=== PATIENT | female | born 1970 | race Caucasian/White ===

== ENCOUNTER → 2017-05-25 | Day surgery (SDC) | payer OTHER ==
[~2017-05-25] MED LIST: IV RINGERS,LACTATED 1000ML 1,000 ML IV SCH; LIDOCAINE 2% PF Vial for OR 5 ML VIAL. ONE; PANT40TA3 PO; PROPOFOL 20 ML IV ONE; SUCR1TAB35 PO; TOPI25CA6 PO
[2017-05-25 07:58] VITALS: BP 120/72
--- NOTE | 2017-05-27 00:02 | PATHOLOGY ---
PATHOLOGY REPORT * * * * * * * * FINAL DIAGNOSIS: Esophageal biopsies, distal esophagus: - Segments of hyperplastic squamous esophageal mucosa, consistent with reflux esophagitis. (JPM:etienne; 05/26/2017) COMMENT: Sections of the distal esophageal biopsy reveal segments of tangentially oriented, hyperplastic squamous esophageal mucosa. The findings are consistent with reflux esophagitis. There is no evidence of Vásquez's change, dysplasia, or malignancy. (JPM:etienne; 05/26/2017) REPORT ELECTRONICALLY SIGNED BY: Silvio Hernandez M.D. DATE/TIME: 05/26/2017 15:44 * * * * * * * * GROSS PATHOLOGY: Received in formalin labeled "Fay Rowe, distal esophageal BX r/o esophagitis," are 4 segments of manuel soft tissue measuring 0.9 x 0.7 x 0.2 cm in aggregate dimensions and ranging from 0.3 to 0.4 cm in maximum dimension. The specimen is submitted entirely in cassette A1. (TSD; 05/25/2017) INITIAL CPT CODE(S): A; 98529 Professional services performed [place] [address] Technical services performed by [facility] at [address] [place] [address]. SPECIMEN(S) RECEIVED: A.Distal esophageal biopsy, r/o esophagitis CLINICAL HISTORY: Abdominal pain, GERD PATIENT: FAY ROWE /AGE: 9 1970 (Age: 47) PATIENT #: [id number] ALT CASE #: SPECIMEN COLLECTION DATE: 05/25/2017 SPECIMEN RECEIVED DATE: 05/25/2017 [facility] - [address] [place] [address] - PHONE: [phone] * * * END OF REPORT * * *
== END | disposition home or self-care (01) ==
LOC: SURG 06:22
PROVIDERS: ATTEND Internal Medicine Gastroenterology
DX: K21.0 Gastro-esophageal reflux disease with esophagitis (principal); K29.50 Unspecified chronic gastritis without bleeding; Z86.39 Personal history of other endocrine, nutritional and metabolic disease; Z90.49 Acquired absence of other specified parts of digestive tract; K21.9 Gastro-esophageal reflux disease without esophagitis; Z72.89 Other problems related to lifestyle; Z88.0 Allergy status to penicillin; Z88.8 Allergy status to other drugs, medicaments and biological substances
CPT/HCPCS: 43239; 88305; J2704; J2001

== ENCOUNTER 2018-11-24 22:25 | Inpatient (IN) | payer OTHER ==
[~2018-11-24] VITALS: Ht 177.8 cm; Wt 51.3 kg
[~2018-11-24 22:25] MED LIST changes: -IV RINGERS,LACTATED 1000ML 1,000 ML IV SCH; -LIDOCAINE 2% PF Vial for OR 5 ML VIAL. ONE; -PROPOFOL 20 ML IV ONE
[2018-11-24 23:06] LABS: BASO % 0 % (0-3); EOS # 0.2 x10^3/uL (0.0-0.7); EOS % 2 % (0-3); LYMPH # 2.7 x10^3/uL (1.0-4.8); LYMPH % 27 % (24-48); MEAN CORPUSCULAR HEMOGLOBIN 30 pg (25-35); MEAN CORPUSCULAR HGB CONC 33 g/dL (31-37); MEAN CORPUSCULAR VOLUME 91 fL (79-100); MONO # 0.6 x10^3/uL (0.0-1.1); MONO % 6 % (0-9); NEUT # 6.4 x10^3uL (1.8-7.7); NEUT % 65 % (31-73); PLATELET COUNT 260 x10^3/uL (140-400); RED BLOOD COUNT 4.29 x10^6/uL (3.50-5.40); RED CELL DISTRIBUTION WIDTH 12.7 % (11.5-14.5); WHITE BLOOD COUNT 9.8 x10^3/uL (4.0-11.0)
[2018-11-24 23:22] LABS: CALCIUM 9.3 mg/dL (8.5-10.1); CREATININE 0.8 mg/dL (0.6-1.0); GFR 76.9; POTASSIUM 3.8 mmol/L (3.5-5.1)
[2018-11-24 23:28] LABS: ALBUMIN/GLOBULIN RATIO 1.1 (1.0-1.7); MAGNESIUM 1.8 mg/dL (1.8-2.4); TOTAL BILIRUBIN 0.3 mg/dL (0.2-1.0); TOTAL PROTEIN 7.5 g/dL (6.4-8.2)
--- NOTE | 2018-11-24 23:51 | PHYS DOC ---
Past Medical History Past Medical History: GERD Past Surgical History: Appendectomy, Cholecystectomy Additional Past Surgical Histo: L SHOULDER,L KNEE Alcohol Use: Occasionally Drug Use: None Adult General Chief Complaint Chief Complaint: CHEST PAIN-CARDIAC NATURE HPI HPI Patient is a 48 year old female who was in by EMS because of chest pain. Patient states she has sudden onset of substernal sharp chest pain an hour after eating dinner as a severe pain and rated her pain 10 over 10. Patient states the pain radiated to his back and associated with shortness of breath, dizziness and diaphoresis. Patient stated she didn't have nausea but had 1 episode of vomiting without change of pain. Patient had aspirin and 2 nitroglycerin by EMS with improvement of her pain. Patient states she had the same pain 4 months ago and seen by GI specialist and was told that she had small pancreatic and bile ducts that could have a small stone and observation was advised. She doesn't have any cardiac factors except for family history of coronary artery disease. Patient denies history of PE and DVT or recent immobilization. Patient complaining of soreness in her chest without chest pain at arrival to ER. Review of Systems Review of Systems Constitutional: Denies fever or chills [] Eyes: Denies change in visual acuity, redness, or eye pain [] HENT: Denies nasal congestion or sore throat [] Respiratory: Denies cough, reports shortness of breath [] Cardiovascular: No additional information not addressed in HPI [] GI: Denies abdominal pain, nausea, bloody stools or diarrhea, reports vomiting [] : Denies dysuria or hematuria [] Musculoskeletal: Denies back pain or joint pain [] Integument: Denies rash or skin lesions [] Neurologic: Denies headache, focal weakness or sensory changes [] Endocrine: Denies polyuria or polydipsia [] All other systems were reviewed and found to be within normal limits, except as documented in this note. Allergies Allergies Allergies Coded Allergies Type Severity Reaction Last Updated Verified Penicillins Allergy Intermediate 05/25/17 No metoclopramide Allergy Intermediate 06/12/17 Yes Physical Exam Physical Exam Constitutional: Well developed, well nourished, mild distress, non-toxic appearance. [] HENT: Normocephalic, atraumatic, oropharynx moist. Eyes: PERRLA, EOMI, conjunctiva normal, no discharge. [] Neck: Normal range of motion, no tenderness, supple, no stridor. [] Cardiovascular:Heart rate regular rhythm, no murmur [] Lungs & Thorax: Bilateral breath sounds clear to auscultation [] Abdomen: Bowel sounds normal, soft, no tenderness, no masses, no pulsatile masses. [] Skin: Warm, dry, no erythema, no rash. [] Back: No tenderness, no CVA tenderness. [] Extremities: No tenderness, no cyanosis, no clubbing, ROM intact, no edema. [] Neurologic: Alert and oriented X 3, normal motor function, normal sensory function, no focal deficits noted. [] Psychologic: Affect normal, judgement normal, mood normal. [] Current Patient Data Vital Signs Vital Signs Date Time Temp Pulse Resp B/P (MAP) Pulse Ox O2 Delivery O2 Flow Rate FiO2 11/24/18 22:25 98.2 82 20 128/66 (86) 100 Room Air 98.2 Lab Values Laboratory Tests Test 11/24/18 22:50 White Blood Count 9.8 x10^3/uL (4.0-11.0) Red Blood Count 4.29 x10^6/uL (3.50-5.40) Hemoglobin 13.0 g/dL (12.0-15.5) Hematocrit 39.0 % (36.0-47.0) Mean Corpuscular Volume 91 fL (79-100) Mean Corpuscular Hemoglobin 30 pg (25-35) Mean Corpuscular Hemoglobin Concent 33 g/dL (31-37) Red Cell Distribution Width 12.7 % (11.5-14.5) Platelet Count 260 x10^3/uL (140-400) Neutrophils (%) (Auto) 65 % (31-73) Lymphocytes (%) (Auto) 27 % (24-48) Monocytes (%) (Auto) 6 % (0-9) Eosinophils (%) (Auto) 2 % (0-3) Basophils (%) (Auto) 0 % (0-3) Neutrophils # (Auto) 6.4 x10^3uL (1.8-7.7) Lymphocytes # (Auto) 2.7 x10^3/uL (1.0-4.8) Monocytes # (Auto) 0.6 x10^3/uL (0.0-1.1) Eosinophils # (Auto) 0.2 x10^3/uL (0.0-0.7) Basophils # (Auto) 0.0 x10^3/uL (0.0-0.2) Sodium Level 139 mmol/L (136-145) Potassium Level 3.8 mmol/L (3.5-5.1) Chloride Level 101 mmol/L (98-107) Carbon Dioxide Level 31 mmol/L (21-32) Anion Gap 7 (6-14) Blood Urea Nitrogen 17 mg/dL (7-20) Creatinine 0.8 mg/dL (0.6-1.0) Estimated GFR (Cockcroft-Gault) 76.9 BUN/Creatinine Ratio 21 (6-20) H Glucose Level 121 mg/dL (70-99) H Calcium Level 9.3 mg/dL (8.5-10.1) Magnesium Level 1.8 mg/dL (1.8-2.4) Total Bilirubin 0.3 mg/dL (0.2-1.0) Aspartate Amino Transferase (AST) 65 U/L (15-37) H Alanine Aminotransferase (ALT) 46 U/L (14-59) Alkaline Phosphatase 62 U/L (46-116) Creatine Kinase 81 U/L (26-192) Troponin I Quantitative < 0.017 ng/mL (0.000-0.055) GA-Geq-J-Type Natriuretic Peptide 27 pg/mL (0-124) Total Protein 7.5 g/dL (6.4-8.2) Albumin 4.0 g/dL (3.4-5.0) Albumin/Globulin Ratio 1.1 (1.0-1.7) Lipase 176 U/L (73-393) Laboratory Tests 11/24/18 22:50 Laboratory Tests 11/24/18 22:50 EKG EKG EKG interpreted by me. EKG at 2228 showed normal sinus rhythm at rate of 82, PVCs, left atrial abnormalities, right reyes axis, poor R-wave progress in anteroseptal leads, no acute distress and T-wave abnormalities. Radiology/Procedures Radiology/Procedures Chest x-ray interpreted by me and did not show acute cardiopulmonary finding. Course & Med Decision Making Course & Med Decision Making Pertinent Labs and Imaging studies reviewed. (See chart for details) Evaluation of patient showed 48-year-old female patient without cardiac risk factors except for family history of coronary disease presented by EMS because of severe chest pain with diaphoresis and shortness of breath and one episode of vomiting. Patient did not have chest pain at arrival to ER. Patient had the same pain several months ago and treated by GI specialist. Labs was unremarkable. Patient states she had some lymph nodes recently and seen by her primary care physician and had some lab and was told she needs some more test. Because of severe chest pain with diaphoresis and vomiting and shortness of breath plan to admit patient for observation and more evaluation. Patient requiring admission for further evaluation and treatment. Discussed with Dr. Herrera who is in agreement with admission. Discussed findings and plan with patient and family, who acknowledge understanding and agreement. Dragon Disclaimer Dragon Disclaimer This electronic medical record was generated, in whole or in part, using a voice recognition dictation system. Departure Departure Impression: Primary Impression: Acute chest pain Disposition: ADMITTED INPATIENT (at 2345) Condition: IMPROVED Referrals: KEESHA BEAR MD (PCP) CHEYENNE ORTIZ MD Nov 24, 2018 23:51
[2018-11-25] MEDS ORDERED: FAMOTIDINE 20 MG/2 ML VIAL IVP ONE
--- NOTE | 2018-11-25 00:02 | RAD ---
PORTABLE CHEST 1V Clinical History: CHEST PAIN Technique: AP view of the chest was obtained at 11/24/2018 10:36 PM. Comparison: None. Findings: The cardiomediastinal silhouette is normal. The pulmonary vasculature is normal. The lungs and pleural margins are clear. Impression: No evidence of an acute cardiopulmonary process. Electronically signed by: Geovanny Harrison III, MD (11/24/2018 11:59 PM) [facility]
[2018-11-25 01:07] VITALS: BP 138/68
[2018-11-25] MEDS ORDERED: VALA500T PO (01:37)
[2018-11-25] MEDS ORDERED: BIOT5TAB PO (01:37)
[2018-11-25] MEDS ORDERED: LORA0.5T96 PO (01:37)
[2018-11-25 03:40] VITALS: BP 105/56
[2018-11-25] MEDS ORDERED: ACETAMINOPHEN 325 MG TABLET. PO PRN (03:45)
[2018-11-25 07:38] VITALS: BP 109/60
[2018-11-25 11:13] VITALS: BP 107/66
--- NOTE | 2018-11-25 11:13 | PDOC2 ---
CONSULT Date of Consult Date of Consult DATE: 11/25/18 TIME: 11:12 Reason for Consult Reason for Consult: Chest pain Referring Physician Referring Physician: Dr. Zaman Identification/Chief Complaint Chief Complaint Chest pain Source Source: Chart review, Patient History of Present Illness Reason for Visit: 48-year-old female presented with sudden onset retrosternal chest pain, 10/10 severity and one episode of vomiting. Her pain was slightly relieved with sublingual nitroglycerin given by EMS. She apparently had 2 more episodes in the past but for milder in severity. She denied any orthopnea/PND, palpitations or syncope. Past Medical History Past Medical History Gastroesophageal reflux disease Past Surgical History Past Surgical History Appendectomy Cholecystectomy Family History Family History Positive for coronary artery disease Social History Social History Patient admitted to social intake of alcohol but denied any smoking or drug abuse Current Medications Current Medications Current Medications Famotidine (Pepcid Vial) 20 mg 1X ONCE IVP Last administered on 11/25/18at 00:42; Start 11/25/18 at 00:00; Stop 11/25/18 at 00:01; Status DC Acetaminophen (Tylenol) 650 mg PRN Q6HRS PRN PO MILD PAIN / TEMP Last administered on 11/25/18at 04:03; Start 11/25/18 at 03:45 Active Scripts Active Reported Ativan (Lorazepam) 0.5 Mg Tablet 0.5 Mg PO DAILY PRN Valacyclovir (Valacyclovir Hcl) 500 Mg Tablet 1 Tab PO DAILY Biotin 5 Mg Tablet 5 Mg PO DAILY Protonix (Pantoprazole Sodium) 40 Mg Tablet.dr 40 Mg PO DAILY Allergies Allergies: Coded Allergies: Penicillins (Unverified Allergy, Intermediate, 05/25/17) metoclopramide (Verified Allergy, Intermediate, 06/12/17) ROS PSYCHOLOGICAL ROS: No: Hallucinations Eyes: No Loss of vision HEENT: No: Epistaxis Cardiovascular: yes Chest Pain Gastrointestinal: Yes Vomiting Genitourinary: No Hematuria Neurological: No Seizures Skin: No Rash Physical Exam General: Alert, Oriented X3 HEENT: Atraumatic, PERRLA Lungs: Clear to auscultation Heart: Regular rate Abdomen: Soft, No tenderness Extremities: No edema Neuro: Normal speech Psych/Mental Status: Mood NL Vitals VITALS Vital Signs Date Time Temp Pulse Resp B/P (MAP) Pulse Ox O2 Delivery O2 Flow Rate FiO2 11/25/18 08:05 Room Air 11/25/18 07:38 97.9 78 12 109/60 (76) 98 97.9 Labs Labs Laboratory Tests Test 11/24/18 22:50 11/25/18 03:00 11/25/18 09:20 White Blood Count 9.8 x10^3/uL (4.0-11.0) Red Blood Count 4.29 x10^6/uL (3.50-5.40) Hemoglobin 13.0 g/dL (12.0-15.5) Hematocrit 39.0 % (36.0-47.0) Mean Corpuscular Volume 91 fL (79-100) Mean Corpuscular Hemoglobin 30 pg (25-35) Mean Corpuscular Hemoglobin Concent 33 g/dL (31-37) Red Cell Distribution Width 12.7 % (11.5-14.5) Platelet Count 260 x10^3/uL (140-400) Neutrophils (%) (Auto) 65 % (31-73) Lymphocytes (%) (Auto) 27 % (24-48) Monocytes (%) (Auto) 6 % (0-9) Eosinophils (%) (Auto) 2 % (0-3) Basophils (%) (Auto) 0 % (0-3) Neutrophils # (Auto) 6.4 x10^3uL (1.8-7.7) Lymphocytes # (Auto) 2.7 x10^3/uL (1.0-4.8) Monocytes # (Auto) 0.6 x10^3/uL (0.0-1.1) Eosinophils # (Auto) 0.2 x10^3/uL (0.0-0.7) Basophils # (Auto) 0.0 x10^3/uL (0.0-0.2) Sodium Level 139 mmol/L (136-145) Potassium Level 3.8 mmol/L (3.5-5.1) Chloride Level 101 mmol/L (98-107) Carbon Dioxide Level 31 mmol/L (21-32) Anion Gap 7 (6-14) Blood Urea Nitrogen 17 mg/dL (7-20) Creatinine 0.8 mg/dL (0.6-1.0) Estimated GFR (Cockcroft-Gault) 76.9 BUN/Creatinine Ratio 21 (6-20) Glucose Level 121 mg/dL (70-99) Calcium Level 9.3 mg/dL (8.5-10.1) Magnesium Level 1.8 mg/dL (1.8-2.4) Total Bilirubin 0.3 mg/dL (0.2-1.0) Aspartate Amino Transf (AST/SGOT) 65 U/L (15-37) Alanine Aminotransferase (ALT/SGPT) 46 U/L (14-59) Alkaline Phosphatase 62 U/L (46-116) Creatine Kinase 81 U/L (26-192) Troponin I Quantitative < 0.017 ng/mL (0.000-0.055) < 0.017 ng/mL (0.000-0.055) < 0.017 ng/mL (0.000-0.055) IZ-Mss-F-Type Natriuretic Peptide 27 pg/mL (0-124) Total Protein 7.5 g/dL (6.4-8.2) Albumin 4.0 g/dL (3.4-5.0) Albumin/Globulin Ratio 1.1 (1.0-1.7) Lipase 176 U/L (73-393) Laboratory Tests Test 11/24/18 22:50 11/25/18 03:00 11/25/18 09:20 White Blood Count 9.8 x10^3/uL (4.0-11.0) Red Blood Count 4.29 x10^6/uL (3.50-5.40) Hemoglobin 13.0 g/dL (12.0-15.5) Hematocrit 39.0 % (36.0-47.0) Mean Corpuscular Volume 91 fL (79-100) Mean Corpuscular Hemoglobin 30 pg (25-35) Mean Corpuscular Hemoglobin Concent 33 g/dL (31-37) Red Cell Distribution Width 12.7 % (11.5-14.5) Platelet Count 260 x10^3/uL (140-400) Neutrophils (%) (Auto) 65 % (31-73) Lymphocytes (%) (Auto) 27 % (24-48) Monocytes (%) (Auto) 6 % (0-9) Eosinophils (%) (Auto) 2 % (0-3) Basophils (%) (Auto) 0 % (0-3) Neutrophils # (Auto) 6.4 x10^3uL (1.8-7.7) Lymphocytes # (Auto) 2.7 x10^3/uL (1.0-4.8) Monocytes # (Auto) 0.6 x10^3/uL (0.0-1.1) Eosinophils # (Auto) 0.2 x10^3/uL (0.0-0.7) Basophils # (Auto) 0.0 x10^3/uL (0.0-0.2) Sodium Level 139 mmol/L (136-145) Potassium Level 3.8 mmol/L (3.5-5.1) Chloride Level 101 mmol/L (98-107) Carbon Dioxide Level 31 mmol/L (21-32) Anion Gap 7 (6-14) Blood Urea Nitrogen 17 mg/dL (7-20) Creatinine 0.8 mg/dL (0.6-1.0) Estimated GFR (Cockcroft-Gault) 76.9 BUN/Creatinine Ratio 21 (6-20) Glucose Level 121 mg/dL (70-99) Calcium Level 9.3 mg/dL (8.5-10.1) Magnesium Level 1.8 mg/dL (1.8-2.4) Total Bilirubin 0.3 mg/dL (0.2-1.0) Aspartate Amino Transf (AST/SGOT) 65 U/L (15-37) Alanine Aminotransferase (ALT/SGPT) 46 U/L (14-59) Alkaline Phosphatase 62 U/L (46-116) Creatine Kinase 81 U/L (26-192) Troponin I Quantitative < 0.017 ng/mL (0.000-0.055) < 0.017 ng/mL (0.000-0.055) < 0.017 ng/mL (0.000-0.055) CU-Wjv-P-Type Natriuretic Peptide 27 pg/mL (0-124) Total Protein 7.5 g/dL (6.4-8.2) Albumin 4.0 g/dL (3.4-5.0) Albumin/Globulin Ratio 1.1 (1.0-1.7) Lipase 176 U/L (73-393) Assessment/Plan Assessment/Plan Chest pain with atypical features, most probably GI etiology. Myocardial infarction has been ruled out. Plan for outpatient exercise stress echocardiogram. Continue proton pump inhibitors. Thank you for your consultation. PIOTR HARVEY MD Nov 25, 2018 11:13
--- NOTE | 2018-11-25 11:26 | SSS ---
ADMIT DATE: 11/25/2018 CHIEF COMPLAINT: Chest pain. HISTORY OF PRESENT ILLNESS: The patient is a pleasant middle-aged female who presented with sudden onset of chest pain. She called the ambulance. She was admitted. She rated her pain at 7/10. Had associated nausea. Her initial cardiac workup was negative. I was concerned she could have gallstones, but she states her gallbladder has already been resected. She does follow with Dr. Grijalva for what she calls small pancreatic ducts. Clinically, she looks great. This morning, I saw and examined her. Her heart tones were normal. Her lungs were clear. Her abdomen was soft. Extremities, no edema. We plan to discharge. I am going to get a CAT scan to make sure she did not have a PE before she goes. PAST MEDICAL HISTORY: Small pancreatic ducts and anxiety. ALLERGIES: PENICILLIN AND METOCLOPRAMIDE. FAMILY HISTORY: Coronary artery disease, but in a distant relative. SOCIAL HISTORY: She does not drink, smoke or take drugs. 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 She is . MEDICATIONS: Reviewed, please refer to the MRAD. REVIEW OF SYSTEMS: GENERAL: No history of weight change, weakness or fevers. SKIN: No bruising, hair changes or rashes. EYES: No blurred, double or loss of vision. NOSE AND THROAT: No history of nosebleeds, hoarseness or sore throat. HEART: No history of palpitations, chest pain or shortness of breath on exertion. LUNGS: Denies cough, hemoptysis, wheezing or shortness of breath. GASTROINTESTINAL: Denies changes in appetite, nausea, vomiting, diarrhea or constipation. GENITOURINARY: No history of frequency, urgency, hesitancy or nocturia. NEUROLOGIC: Denies history of numbness, tingling, tremor or weakness. PSYCHIATRIC: No history of panic, anxiety or depression. ENDOCRINE: No history of heat or cold intolerance, polyuria or polydipsia. EXTREMITIES: Denies muscle weakness, joint pain, pain on walking or stiffness. PHYSICAL EXAMINATION: VITAL SIGNS: Temperature afebrile, pulse 92, respirations 18, blood pressure 142/90. GENERAL: She is alert, cooperative. Her is present. HEART: Normal S1, S2. LUNGS: Clear. ABDOMEN: Soft. EXTREMITIES: No edema. SKIN: No rash. ENDOCRINE: No thyromegaly. LYMPHATICS: No cervical nodes. HEMATOPOIETIC: No bruising. PSYCHIATRIC: She is stable. LABORATORY DATA: Troponins are all 0. ASSESSMENT AND PLAN: Atypical chest pain, suspect perhaps an esophageal spasm or pleurisy. We plan to discharge. I am going to get a CAT scan before she goes just to make sure she did not have a PE. We have consulted Cardiology as well asked nurse to check with them and see if they agree. DISPOSITION: Home. ACTIVITY: As tolerated. DIET: Low sodium. MEDICATIONS: Please see the MRAD, I basically just put her back on her home medications. TOTAL TIME: 32 minutes. SHAYNEL Tamara PACHECO DO DR: CYDNEY/curry JOB#: [id number] / [id number]
[2018-11-25] MEDS ORDERED: IOHEXOL 350 MG/ML 100 ML VIAL. IV ONE (12:15)
[2018-11-25] MEDS ORDERED: CONTRAST GIVEN. MC PRN (12:30)
--- NOTE | 2018-11-25 12:30 | RAD ---
Chest CTA History: Chest pain, shortness of air Technique: After bolus of intravenous contrast, CT imaging was performed of the chest. Multiplanar reconstruction images to include MIP reconstruction images are submitted. Exposure: One or more of the following individualized dose reduction techniques were utilized for this examination: 1. Automated exposure control 2. Adjustment of the mA and/or kV according to patient size 3. Use of iterative reconstruction technique. Comparison: None Findings: [ ] No pulmonary embolism is identified. There is no pleural or pericardial effusion, pneumothorax, significant infiltrate. Thoracic aortic caliber is within normal limits, no intraluminal flap. Note is made of aberrant right subclavian artery. Heterogeneity of the spleen is probably due to differential in perfusion during exam. No significant chest lymphadenopathy is identified. Major airways are patent. There is mild likely fibrotic change near the right apex. Impression: 1. No pulmonary embolism is identified. 2. There is aberrant right subclavian artery. Electronically signed by: Shane Patterson MD (11/25/2018 12:27 PM) [facility]
--- NOTE | 2018-11-25 14:23 | NUR ---
Pt discharged to home. All discharge orders, follow-ups reviewed with pt prior to leaving. Pt denies further needs. IV d/c'd without complications, tele monitor off prior to leaving. Assisted to car via wheelchair with staff and .
--- NOTE | 2018-11-26 08:43 | EKG ---
[facility] [address] [place] [address] Test Date: 2018-11-24 Test Time: 22:28:27 Pat Name: NIKKO ROWE Department: Room: 258 1 Gender: F Advanced Practice Nurse: : 1970 Requested By: CHEYENNE OTRIZ Order Number: [id number] Reading MD: Dao Mukherjee Measurements Intervals [place] Run Rate: 82 P: 66 HI: 140 QRS: 92 QRSD: 84 T: 52 QT: 376 QTc: 442 Interpretive Statements SINUS RHYTHM ATRIAL PREMATURE COMPLEX(ES) NONSPECIFIC ST-T WAVE CHANGES. Electronically Signed On 11-29-2018 13:05:27 CDT by Dao Mukherjee
== END 2018-11-25 14:24 | disposition home or self-care (01) | DRG 392 ==
LOC: ER 22:25 → 2 SOUTH 23:40
PROVIDERS: ADMIT Internal Medicine; ATTEND Internal Medicine
DX: K22.4 Dyskinesia of esophagus (principal); R09.1 Pleurisy; K21.9 Gastro-esophageal reflux disease without esophagitis; Z90.49 Acquired absence of other specified parts of digestive tract; Z82.49 Family history of ischemic heart disease and other diseases of the circulatory system; Z88.0 Allergy status to penicillin; Z88.8 Allergy status to other drugs, medicaments and biological substances; F41.9 Anxiety disorder, unspecified
CPT/HCPCS: 36415; 71045; 71275; 80053; 82550; 83690; 83735; 83880; 84484; 85025; 93005; J3490; Q9967; 99285-25